=== PATIENT | female | born 1945 | race Caucasian/White ===

== ENCOUNTER 2023-11-30 11:31 | Emergency (ER) | payer MEDICARE, OTHER ==
[2023-11-30] MEDS: Doxycycline 100 MG Cap PO ONE (12:24)
== END 2023-11-30 12:30 | disposition home or self-care (01) ==
LOC: JP.ED 11:31
DX: S30.860A Insect bite (nonvenomous) of lower back and pelvis, initial encounter (principal); I10 Essential (primary) hypertension; Z79.899 Other long term (current) drug therapy; W57.XXXA Bitten or stung by nonvenomous insect and other nonvenomous arthropods, initial encounter
CPT/HCPCS: 99281; A9270